=== PATIENT | female | born 1990 | race Caucasian/White ===

== ENCOUNTER 2023-01-16 10:10 | Emergency (ER) | payer OTHER ==
[~2023-01-16] VITALS: Ht 162.6 cm; Wt 63.5 kg
[2023-01-16 10:41] VITALS: BP 114/84
== END 2023-01-16 11:45 | disposition home or self-care (01) ==
LOC: ER 10:10
DX: L50.9 Urticaria, unspecified (principal); Z88.0 Allergy status to penicillin
CPT/HCPCS: 99282; A9270; J1100